=== PATIENT | male | born 1950 | race Caucasian/White ===

== ENCOUNTER → 2017-12-12 10:55 | Outpatient (CLI) | payer MEDICARE, SELFPAY ==
[2017-12-12 12:22] LABS: Add Manual Diff / Slide Review NO; Basophils Percent Auto 1.7 % (0-2); Hematocrit 47.5 % (41-53); Hemoglobin 16.1 g/dL (13.5-17.5); Lymphocytes Percent Auto 25.6 % (25-40); Mean Corpuscular HGB Conc 33.9 % (30-36); Mean Corpuscular Hemoglobin 31.3 PG (26-34); Mean Corpuscular Volume 92.1 fL (80-100); Monocytes Percent Auto 11.6 % (3-14); Neutrophils Absolute Auto 3000 /uL (3000-5900); Neutrophils Percent Auto 52.1 % (50-75); Platelet Count 140 X10^3/uL (150-400); Red Blood Cell Count 5.15 X10^6/uL (4.5-5.9); Red Cell Distribution Width 14.3 % (11.6-14.8); White Blood Cell Count 5.7 X10^3/uL (4.5-11.0)
[2017-12-12 12:47] LABS: Alanine Aminotransferase 45 IU/L (21-72); Albumin Globulin Ratio 1.3 (1.0-2.8); Alkaline Phosphatase 86 U/L (38-126); Aspartate Aminotransferase 30 IU/L (17-59); BUN Creatinine Ratio 17.8 (6-22); Bilirubin Total 0.4 mg/dL (0.2-1.3); Blood Urea Nitrogen 16 mg/dL (9-20); Calcium 9.2 mg/dL (8.4-10.2); Carbon Dioxide 23 mmol/L (22-32); Chloride 108 mmol/L (98-107); Cholesterol 126 mg/dL (140-199); Estimated Glomerular Filt Rate > 60.0 mL/min (>60); Glucose 94 mg/dL (80-110); HDL Cholesterol 44 mg/dL (40-60); HEMOLYSIS < 15 (0-50); LDL Cholesterol Calculated 71 mg/dL (<100); Potassium 4.4 mmol/L (3.4-5.1); Sodium 145 mmol/L (137-145); Triglycerides 53 mg/dL (35-150)
[2017-12-12 13:21] LABS: TSH w/ Reflex to FT4 1.47 uIU/mL (0.47-4.68)
== END ==
PROVIDERS: PCP Internal Medicine; Visit Provider Internal Medicine
DX: I10 Essential (primary) hypertension (principal); E78.00 Pure hypercholesterolemia, unspecified; G25.81 Restless legs syndrome
CPT/HCPCS: 36415; 80053; 80061; 84153; 84443; 85025

== ENCOUNTER → 2019-10-08 15:01 | Outpatient (ROUT) | payer MEDICARE, SELFPAY ==
[2019-10-08 15:25] LABS: BUN Creatinine Ratio 20.8 (6-22); Blood Urea Nitrogen 21 mg/dL (9-20); Carbon Dioxide 24 mmol/L (22-32); Chloride 109 mmol/L (98-107); Estimated Glomerular Filt Rate > 60.0 mL/min (>60); Glucose 105 mg/dL (80-110); HEMOLYSIS 23 (0-50); Potassium 4.6 mmol/L (3.4-5.1); Sodium 138 mmol/L (137-145)
== END ==
PROVIDERS: PCP Internal Medicine; Visit Provider Internal Medicine
DX: I10 Essential (primary) hypertension (principal)
CPT/HCPCS: 80048

== ENCOUNTER → 2019-11-15 06:56 | Outpatient (CLI) | payer MEDICARE, SELFPAY ==
--- NOTE | 2019-11-15 | DI.ECHO.S_ITS ---
Version: 1 Study ID: [id number] [place] [id number] Name: CHAVO LARSON Study Date: 11/15/2019, 7: 15 AM : 1950 BP: 158 / 100 mmHg Gender: Male Height: 70 in Age: 69 Years Weight: 237 lb BSA: 2.24 mA? Ordering: Dr. Gen Henning Clinician: Christina Hunt Reason For Study: Hypertension History: Summary Statements Normal sinus rhythm. Normal LV size, wall thickness, wall motion and LV systolic function. EF is 55-60%. Normal chamber sizes. No valvular abnormalities. Procedure: A two-dimensional transthoracic echocardiogram with color flow and Doppler was performed. The study quality was technically adequate. There is no prior echocardiogram noted for this patient. The patient was in normal sinus rhythm during the exam. Left Ventricle: The left ventricle is normal in size. The ejection fraction is estimated to be 55-60%. Right Ventricle: The right ventricle is normal in size and function. Atria: The left atrium is mildly dilated. Right atrial size is normal. There is no Doppler evidence for an interatrial shunt. Mitral Valve: The mitral valve leaflets are slightly calcified. There is trace mitral regurgitation. Aortic Valve: The aortic valve is trileaflet. The aortic valve opens well. There is trace aortic regurgitation. Tricuspid Valve: The tricuspid valve is normal in structure and function. There is trace tricuspid regurgitation. The right ventricular systolic pressure is estimated to be at least 35 mmHg based on an estimated right atrial pressure of 15 mm Hg. Pulmonic Valve: The pulmonic valve is not well visualized. There is a trace or physiologic amount of pulmonic regurgitation. Great Vessels: The aortic root is normal size. The ascending aorta could not be visualized. The pulmonary artery is not well visualized, but is probably normal size. The IVC is dilated (diameter is greater than 2.1 cm) and it collapses less than 50% with a sniff. This suggests a high right atrial pressure of 15 mm Hg. Pericardium/ Pleura: There is no pericardial effusion. There is no pleural effusion. 2D and M-Mode Measurements and Calculations LVIDd: 4.3 cm AoV Openin.38 cm LVIDs: 2.9 cm LVOT diam: 2.30 cm IVSd: 0.81 cm Ao root diam: 3.6 cm LVPWd: 0.98 cm LV dumas. diameter/BSA (cm/m^2): 1.91 LV sys. diameter/BSA (cm/m^2): 1.27 EPSS: 0.11 cm RVD1 (basal): 4.1 cm IVC diam: 2.38 cm TAPSE: 2.26 cm LA A4 area: 22.0 medical administrative specialist? RA area: 14.8 medical administrative specialist? LA A2 area: 24.6 medical administrative specialist? RA long axis: 5.0 cm LA length (vol): 5.4 cm RA vol: 37.6 ml LA vol: 85.5 ml RA : 16.8 ml/mA? LA vol index: 38.1 ml/mA? Doppler Measurements and Calculations Ao V2 max: 127.5 cm/sec LVOT Max Boo: 97.6 cm/sec Ao V2 mean: LV V1 max P.8 mmHg Ao V2 VTI: LV V1 VTI: 18.4 cm Ao max P.5 mmHg Ao mean PG: RICHARD(V,D): 3.2 medical administrative specialist? MV E max boo: 63.0 cm/sec MV dec time: 0.20 sec MV A max boo: 81.2 cm/sec MV E/A: 0.78 Med Peak E' Boo: 6.3 cm/sec Lat Peak E' Boo: 6.7 cm/sec E/e' average: 9.7 TR max boo: 225.9 cm/sec PA V2 max: 66.5 cm/sec TR max P.4 mmHg PA mean P.89 mmHg PA Accel Time: 0.13 sec Electronically signed by: Paula Urias M.D. 11/16/2019, 4: 01 AM
== END ==
PROVIDERS: PCP Internal Medicine; Referring Provider Internal Medicine; Visit Provider Internal Medicine
DX: I10 Essential (primary) hypertension (principal)
CPT/HCPCS: 93306

== ENCOUNTER → 2019-11-28 16:31 | Outpatient (ROUT) | payer MEDICARE, SELFPAY ==
[2019-11-28 17:16] LABS: Add Manual Diff / Slide Review NO; Basophils Absolute Auto 100 /uL (0-100); Basophils Percent Auto 1.1 % (0-2); Eosinophils Absolute Auto 400 /uL (0-450); Eosinophils Percent Auto 6.9 % (2-4); Hematocrit 47.1 % (41-53); Lymphocytes Absolute Auto 1500 /uL (1100-4500); Lymphocytes Percent Auto 24.4 % (25-40); Mean Corpuscular Hemoglobin 31.4 PG (26-34); Mean Corpuscular Volume 92.4 fL (80-100); Monocytes Absolute Auto 600 /uL (0-900); Monocytes Percent Auto 9.9 % (3-14); Neutrophils Absolute Auto 3400 /uL (1500-7000); Neutrophils Percent Auto 57.7 % (50-75); Platelet Count 138 X10^3/uL (150-400); Red Blood Cell Count 5.09 X10^6/uL (4.5-5.9); Red Cell Distribution Width 14.6 % (11.6-14.8)
[2019-11-28 17:46] LABS: TSH w/ Reflex to FT4 1.59 uIU/mL (0.47-4.68)
[2019-11-28 17:50] LABS: Alanine Aminotransferase 34 IU/L (<50); Albumin 3.7 g/dL (3.5-5.0); Albumin Globulin Ratio 1.2 (1.0-2.8); Alkaline Phosphatase 95 U/L (38-126); Aspartate Aminotransferase 30 IU/L (17-59); BUN Creatinine Ratio 17.9 (6-22); Bilirubin Total 0.6 mg/dL (0.2-1.3); Blood Urea Nitrogen 17 mg/dL (9-20); Calcium 9.2 mg/dL (8.4-10.2); Carbon Dioxide 26 mmol/L (22-32); Chloride 110 mmol/L (98-107); Cholesterol 121 mg/dL (140-199); Estimated Glomerular Filt Rate > 60.0 mL/min (>60); Globulin 3.2 g/dL (1.7-4.1); Glucose 107 mg/dL (80-110); HDL Cholesterol 39 mg/dL (40-60); HEMOLYSIS < 15 (0-50); LDL Cholesterol Calculated 68 mg/dL (<100); Potassium 4.4 mmol/L (3.4-5.1); Sodium 141 mmol/L (137-145); Total Protein 6.9 g/dL (6.3-8.2); Triglycerides 68 mg/dL (35-150)
[2019-11-28 18:19] LABS: Prostate Specific Antigen Scrn 3.56 ng/mL (0.1-4.0)
== END ==
PROVIDERS: PCP Internal Medicine; Visit Provider Internal Medicine
DX: E66.9 Obesity, unspecified (principal); F32.9 Major depressive disorder, single episode, unspecified; I10 Essential (primary) hypertension; E78.00 Pure hypercholesterolemia, unspecified; Z12.5 Encounter for screening for malignant neoplasm of prostate
CPT/HCPCS: 80053; 80061; 84443; 85025; G0103

== ENCOUNTER 2021-07-25 16:07 | Emergency (ER) | payer MEDICARE, SELFPAY ==
[2021-07-25 16:15] VITALS: BP 143/88; PULSE 77; RESP 18; TEMP 36.7; O2SAT 97
--- NOTE | 2021-07-25 16:19 | DI.RAD.S_ITS ---
PROCEDURE: XR FINGER RT MIN 2V INDICATIONS: fb TECHNIQUE: AP hand, 2 views of the 3rd finger(s) acquired. COMPARISON: None. FINDINGS: Bones: No fractures or dislocations. No suspicious bony lesions. Soft tissues: A 1 cm angulated metallic foreign body can be seen involving the ulnar aspect of the distal portion of the 3rd finger. IMPRESSION: 1 cm metallic foreign body involving the distal aspect of the 3rd finger. Dictated by: Trever Morales M.D. on 07/25/2021 at 15:43 Approved by: Trever Morales M.D. on 07/25/2021 at 15:44
--- NOTE | 2021-07-25 18:45 | ED.WOUNDLAC ---
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 He was unable to remove the object by himself at home. He comes in for assistance. Related Data Previous Rx's Medication Instructions Recorded cephalexin 500 mg capsule 500 mg PO TID #15 caps 07/25/21 Allergies Allergy/AdvReac Type Severity Reaction Status Date / Time No Known Drug Allergies Allergy Verified 07/25/21 16:18 Review of Systems Review of Systems Narrative: No recent fevers, moderate amount of bleeding at the site that is now controlled. Moderate amount of tenderness but he has full range of motion and finger Exam Initial Vital Signs Initial Vital Signs: Vital Signs Temperature 98.0 F 07/25/21 16:15 Pulse Rate 77 07/25/21 16:15 Respiratory Rate 18 07/25/21 16:15 Blood Pressure 143/88 H 07/25/21 16:15 Pulse Oximetry 97 07/25/21 16:15 Oxygen Delivery Method 07/25/21 16:15 General: Alert appropriate in no acute distress Respiratory: Able to speak in full sentences, no obvious respiratory distress Skin: No obvious rashes, warm and dry Neurologic: Grossly intact no obvious asymmetries or abnormalities Psych: appropriate insight and affect, cooperative Extremity: Right middle finger with a small stable sticking out of lateral side of the D IP. He has full sensation and the joint is not involved. Course Orders Ordered: ED Orders 07/25/21 16:19 XR finger RT min 2V Stat Discontinued Medications Bacitracin (Bacitracin Oint 0.9 Gm Pckt) 1 applic TOP NOW ONE Stop: 07/25/21 18:40 Vital Signs Vital signs: Vital Signs - 8 hr 07/25/21 16:15 Temperature 98.0 F Pulse Rate 77 Respiratory Rate 18 Blood Pressure 143/88 H Pulse Oximetry 97 Oxygen Delivery Method Room Air MDM - Wound/Laceration Imaging Data X-ray hand: Radiologist's Impression: FINDINGS:? ? Bones:? No fractures or dislocations.? No suspicious bony lesions.? ? Soft tissues:? A 1 cm angulated metallic foreign body can be seen involving the ulnar aspect of the distal portion of the 3rd finger. ? ? ? IMPRESSION:? 1 cm metallic foreign body involving the distal aspect of the 3rd finger.? ? ? Dictated by: Trever Morales M.D. on 07/25/2021 at 15:43? ?? MDM Narrative Medical decision making narrative: X-ray is unremarkable. Half a cc of bupivacaine without epinephrine is injected around the stable and is removed without difficulty with hemostat. Bacitracin and Band-Aid applied he is safe for home discharge Discharge Plan Departure Patient Disposition: Home Clinical Impression: Foreign body finger Activity Restrictions/Additional Instructions: Thank you for coming in. I am sorry that this required an ER visit to get out but it was fairly solidly stock. We use bupivacaine to numb the area and it was fairly easy to remove at that point. With of a small wound like this I do not think you need antibiotics however finger tip infections can be quite complicated. I am going to give you a prescription for cephalexin. If you notice increasing pain, redness or lymphangitis spread up the finger please start the antibiotics. If you start the prescription please complete the entire 5 days If you find that you are getting worse or develop any new symptoms, please feel free to return to the emergency department for further evaluation. Prescriptions: New cephalexin 500 mg capsule 500 mg PO TID Qty: 15 0RF Referrals: Gen Henning MD [Primary Care Provider] -
[2021-07-25] MEDS: BACITRACIN OINT 0.9 GM PCKT 1 APPLIC TOP (18:50)
== END 2021-07-25 18:55 | disposition home or self-care (01) ==
PROVIDERS: Emergency Provider Emergency Medicine; PCP Internal Medicine
DX: S60.451A Superficial foreign body of left index finger, initial encounter (principal)
CPT/HCPCS: 73140; 99282; 99283

== ENCOUNTER → 2023-08-29 10:46 | Outpatient (CLI) | payer MEDICARE, SELFPAY ==
--- NOTE | 2023-08-29 10:49 | DI.RAD.S_ITS ---
PROCEDURE: XR LUMBAR SPINE 2-3V INDICATIONS: left thigh pain/numbness; eval disc height loss/lumbar spine TECHNIQUE: 3 views of the lumbar spine were acquired. COMPARISON: None. FINDINGS: Bones: 5 [id number] vertebrae are present. Convex left scoliosis, centered at L3 and L4. No vertebral body compression fractures. No suspicious bony lesions. Moderate disc height loss at all levels and facet arthrosis of L3 through S1. Soft tissues: Overlying bowel gas pattern is normal. No suspicious soft tissue calcifications. IMPRESSION: Moderate, multilevel degenerative disc disease and lower lumbar facet arthrosis. Dictated by: Hayder Mitchell M.D. on 08/29/2023 at 10:47 Approved by: Hayder Mitchell M.D. on 08/29/2023 at 10:48
--- NOTE | 2023-08-29 10:49 | DI.US.S_ITS ---
PROCEDURE: US PERIPH VENOUS LOW EXTREM LT INDICATIONS: left thigh/popliteal aching pain 3 weeks TECHNIQUE: Real-time imaging, as well as color and pulse Doppler interrogation, were performed of the lower extremity deep veins from the inguinal ligament to the popliteal fossa, with documentation of the visualized calf veins. COMPARISON: None. FINDINGS: The common femoral, femoral, popliteal, and the visualized calf veins are normally compressible, and free of intraluminal thrombus. Color and pulse Doppler demonstrate normal phasic intraluminal flow. There is normal augmentation response to distal compression maneuver. IMPRESSION: No findings of lower extremity deep venous thrombosis. Dictated by: Hayder Mitchell M.D. on 08/29/2023 at 10:50 Approved by: Hayder Mitchell M.D. on 08/29/2023 at 10:50
--- NOTE | 2023-08-29 10:49 | DI.RAD.S_ITS ---
PROCEDURE: XR KNEE LT 3V INDICATIONS: Left knee buckling since yesterday, sharp pains TECHNIQUE: 3 views of the knee were acquired. COMPARISON: None. FINDINGS: Bones: No fractures or dislocations. No suspicious bony lesions. Tricompartmental joint space narrowing with associated osteophytosis. Soft tissues: No joint effusion. No suspicious soft tissue calcifications. IMPRESSION: No acute bony abnormality or significant effusion. 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 Dictated by: Hayder Mitchell M.D. on 08/29/2023 at 10:48 Approved by: Hayder Mitchell M.D. on 08/29/2023 at 10:50
== END ==
PROVIDERS: PCP Internal Medicine; Referring Provider Student in an Organized Health Care Education/Training Program; Visit Provider Student in an Organized Health Care Education/Training Program
DX: M51.16 Intervertebral disc disorders with radiculopathy, lumbar region (principal); M47.26 Other spondylosis with radiculopathy, lumbar region; M47.27 Other spondylosis with radiculopathy, lumbosacral region; M17.12 Unilateral primary osteoarthritis, left knee; M79.652 Pain in left thigh; M25.562 Pain in left knee; M25.369 Other instability, unspecified knee
CPT/HCPCS: 72100; 73562; 93971

== ENCOUNTER → 2023-10-06 12:45 | Outpatient (CLI) | payer MEDICARE, SELFPAY ==
--- NOTE | 2023-10-06 12:47 | DI.MRI.S_ITS ---
PROCEDURE: MR LUMBAR SPINE WO CON INDICATIONS: SPINAL STENOSIS TECHNIQUE: Noncontrast sagittal T1 spin echo and T2 fast echo, sagittal STIR, and T2 fast spin echo through the lumbar spine. In cases with scoliosis, additional coronal T2 fast spin echo may be performed. COMPARISON: None. FINDINGS: Image quality: Excellent. Alignment and Curvature: Convex left lumbar scoliosis Bone Marrow: Marrow is of normal overall signal. No acute vertebral body compression fractures. Spinal Cord: Conus medullaris terminates at the L1 level. Visualized cord demonstrates normal signal and size. Paraspinous Soft Tissues: No paravertebral masses. T12-L1: Normal appearance. L1-L2: Normal appearance. L2-L3: Disc bulge and arthropathy. Moderate central stenosis. Moderate bilateral foraminal stenosis. L3-L4: Disc bulge and arthropathy. Moderate central stenosis. Severe right and moderate left foraminal stenosis L4-L5: Disc bulge and arthropathy. Mild central stenosis. Severe right moderate left foraminal stenosis L5-S1: Disc bulge and arthropathy. No central stenosis. Moderate left and no right foraminal stenosis. IMPRESSION: Multilevel degenerative disc disease and arthropathy results in varying degrees of central and foraminal stenosis including severe foraminal stenosis L3-4 and L4-5 Approved by: Russell Stock M.D. on 10/06/2023 at 16:35
== END ==
PROVIDERS: Referring Provider Physical Medicine & Rehabilitation Pain Medicine; Visit Provider Physical Medicine & Rehabilitation Pain Medicine
DX: M48.062 Spinal stenosis, lumbar region with neurogenic claudication (principal); M51.36 Other intervertebral disc degeneration, lumbar region; M47.816 Spondylosis without myelopathy or radiculopathy, lumbar region; M51.37 Other intervertebral disc degeneration, lumbosacral region; M47.817 Spondylosis without myelopathy or radiculopathy, lumbosacral region; M48.07 Spinal stenosis, lumbosacral region
CPT/HCPCS: 72148